=== PATIENT | female | born 1985 | race Caucasian/White ===

== ENCOUNTER → 2023-07-05 | Outpatient (CLI) | payer OTHER, SELFPAY ==
--- NOTE | 2023-07-05 | DI.MG.S_ITS ---
UNILATERAL LEFT DIGITAL DIAGNOSTIC MAMMOGRAM 3D/2D POST-PROCEDURE IMAGING FOR MARKER PLACEMENT: 07/05/2023 CLINICAL: Post clip. Comparison is made to exams dated: 06/20/2023 ultrasound and 06/20/2023 mammogram - [facility]. The left breast is heterogeneously dense, which may obscure small masses (category c / 51-75% glandular tissue). There is a biopsy clip at the biopsy site in the left breast. IMPRESSION: POST PROCEDURE MAMMOGRAM FOR MARKER PLACEMENT A biopsy clip at the biopsy site in the left breast. Based on Tyrer-Cuzick model (a risk assessment model), the patient's lifetime risk is 24.9% and her 10 year risk is 2.9%. If a patient has an elevated risk, a more comprehensive evaluation should be considered and/or a referral to a genetic counselor. The [place] [employer], [place] [employer], and NCCN Guidelines advise the consideration of Breast MRI as an adjunct to screening mammography in patients whose Lifetime risk to develop breast cancer is 20% or higher. This exam was interpreted at Station ID: [id number]. NOTE: For mammograms, a report in lay terms will be sent to the patient. Approximately 15% of breast malignancies will not be visualized mammographically. In the management of a palpable breast mass, a negative mammogram must not discourage biopsy of a clinically suspicious lesion. Electronically Signed By: Sherie Dalton M.D. fx/:07/05/2023 16:51:25 ACR BI-RADS Category Post-procedure mammogram for marker placement
--- NOTE | 2023-07-05 | DI.US.S_ITS ---
ULTRASOUND GUIDED BIOPSY LEFT BREAST USING VACUUM DEVICE WITH POST MAMMOGRAPHIC AND ULTRASOUND IMAGIN07/05/2023 CLINICAL: Left breast mass. PATIENT CONSENT: Risks (minor bleeding, infection, vasovagal reaction and repeat procedure), benefits and alternatives were explained to the patient and written informed consent was obtained. Correlation is made to exams dated: 06/20/2023 ultrasound and 06/20/2023 mammogram - [facility]. An ultrasound guided biopsy using real-time ultrasound was performed for the oval mass located in the left breast at 11 o'clock posterior depth. This was described on the previous ultrasound report. The skin was prepped in the usual manner. Local anesthetic was administered to the access site. The abnormality was approached from the lateral aspect. A 13 gauge biopsy needle was placed adjacent to the abnormality under ultrasound guidance. Once the needle was documented to be in the correct location, five specimens were obtained using the Mammotome biopsy system. Post procedure mammographic and ultrasound imaging demonstrates the clip at the targeted area. The specimens were sent to the laboratory for pathological analysis. IMPRESSION: ULTRASOUND GUIDED BIOPSY BENIGN Ultrasound guided biopsy of the mass in the left breast posterior depth was successful. Pathology indicates benign apocrine metaplasia (AM), fibroadenomatous change, and fibrocystic changes (FC). Pathology results are concordant with imaging findings. A follow-up ultrasound in 6 months is recommended to demonstrate stability. This exam was interpreted at Station ID: [id number]. Sherie Franks M.D. fx,slc/:07/12/2023 16:47:44
--- NOTE | 2023-07-05 | PATH_ITS ---
[facility] Accession Number: [id number] No. of containers..01 Tissue . 01 Material submitted: . breast - LEFT BREAST MASS 11:00 5 CMFN . 01 Diagnosis: LEFT BREAST MASS, 11 O'CLOCK, 5 CM FROM NIPPLE: Apocrine metaplasia (6 mm in greatest dimension) in a background of fibroadenomatous and fibrocystic change, including usual ductal hyperplasia, stromal fibrosis, cystic dilatation of terminal ductules, and adenosis. Negative for epithelial atypia or malignancy. Additional levels through the block are non-contributory. MRV 07/11/2023 1047 Local . 01 Comment: As part of routine director software quality assurance, this case was also reviewed by Drs. Li and Zaira, who agree with the interpretation. . 01 Electronically signed: . Sandra Moreland MD, Pathologist NPI- [id number] . 01 Gross description: . Received is one formalin-filled container labeled with the patient's name and designated left breast mass 11 o'clock 5 cm FN. The specimen is received with a plastic filter in container and sample loose in container and consists of multiple fragments of yellow-tirado soft tissue which range in size from less than 0.1 cm to 1.1 x 0.3 x 0.3 cm. All fragments are totally submitted in cassette A1. . Possible collection date and time per requisition 07/05/2023 at 1608 hours. Total fixation time approximately 11 hours. ([id number]) /RK 07/06/2023 0611 Local . 01 Pathologist provided ICD-10: N63.20 . 01 CPT . 316563 Performed at: 01 [facility] [address] [place] [address] Suite [facility], [place], [place] [id number] MD Bhaskar Sheldon MD Phone: [phone]
== END ==
PROVIDERS: Referring Provider Physician Assistant; Visit Provider Physician Assistant
DX: N60.82 Other benign mammary dysplasias of left breast (principal); N60.32 Fibrosclerosis of left breast; N60.22 Fibroadenosis of left breast; R92.333 Mammographic heterogeneous density, bilateral breasts
CPT/HCPCS: 19083; 77065